=== PATIENT | male | born 1980 | race African-American/Black ===

== ENCOUNTER 2019-09-17 10:27 | Observation (INO) | payer MEDICAID ==
[~2019-09-17] VITALS: Ht 177.8 cm; Wt 77.3 kg
--- NOTE | ~2019-09-17 | EC ---
PATIENT:RON HO DATE OF SERVICE: 09/17/19 SEX: M MEDICAL RECORD: [id number] DATE OF : [birth year] LOCATION:D.M2 D.212 AGE OF PATIENT: 39 ADMISSION DATE: 09/17/19 REFERRING PHYSICIAN: INTERPRETING PHYSICIAN: KEANU PAEZ MD ECHOCARDIOGRAM REPORT ECHO CHARGES 4 ECHO COMPLETE Date: 09/18/19 CLINICAL DIAGNOSIS: CP ECHOCARDIOGRAPHIC MEASUREMENTS (adult normal given) AC root (d.<3.7cm) 2.9 cm LV Septum d (<1.2 cm> 1.4 cm Valve Excursion 2.1 cm LV Septum (systole) 2.1 cm Left Atria (s.<4.0cm> 3.6 cm LVPW d(<1.2cm) 1.5 cm RV (d.<2.3cm) 3.2 cm LVPW (sytole) 2.1 cm LV diastole(<5.6CM) 4.4 cm MV E-F(>70mm/sec) cm LV systole 2.2 cm LVOT Diameter 1.9 cm MV exc.(>10mm) cm Est.ejection fraction (50-75%) % DOPPLER: LVIT cm/sec A 49.0 cm/sec E 63.0 cm/sec LA cm/sec RVSP 34.2 mmHg LVOT 88.0 cm/sec AOP1/2T m/s Asc. Ao 143 cm/sec RVOT 65.0 cm/sec RA cm/sec PA 95.0 cm/sec AV Gradient Peak 8.2 mmHg AV Mean 4.0 mmHg AV Area 1.7 cm MV Gradient Peak 2.0 mmHg MV Mean 0.85 mmHg MV Area cm COMMENTS: Fundraising Assistant: 1 ALMA BASHIROE Heavy Mobile Equipment Repairer: 1 Dr. Paez TAPE# PACS Pericardial Effusion N DATE OF SERVICE: 09/18/2019 FINDINGS: 1. Left ventricular chamber size is within normal limits. Left ventricular systolic function is normal. Overall ejection fraction estimated at 55% to 60%. 2. Left atrium is within normal limits at 3.6 cm. Right atrium and right ventricular chamber sizes are mildly dilated. 3. Valvular structure have normal structure and motion. 4. Doppler interrogation reveals trivial mitral regurgitation, trivial tricuspid regurgitation, no other valvular insufficiency or stenosis. Pulmonary ECHOCARDIOGRAM REPORT [id number] RON HO systolic pressure estimated at 34 mmHg. 5. No evidence of pericardial effusion or left ventricular thrombus. TRANSINT:[id number] Voice Confirmation ID: [id number] DOCUMENT ID: [id number] KEANU PAEZ MD CC: [id number] DICTATION DATE: 09/19/19 1337 WIRE WINDER: 09/19/192304 DIS IN 09/18/19 [place] [id number] [place] [id number]
--- NOTE | ~2019-09-17 | HEMODYNAMI ---
PATIENT:RON HOWELL MEDICAL RECORD: [id number] : 82 LOCATION:[place] [address] ADMISSION DATE: 09/17/19 Generatedon:09/18/201912:38 Patient name: RON HOWELL Patient #: [id number] SSN: : 1980 Date of study: 09/18/2019 Page: Of Hemodynamic Procedure Report Patient Data Patient Demographics Procedure consent was obtained First Name: RON Gender: Male Last Name: VIC : 1980 Patient #: [id number] Age: 39 year(s) Race: Black Additional ID: [id number] Contact details Address: [address] [place] [address] State: [place] City: [facility] Zip code: [address] Admission Admission Data Admission Date: 09/17/2019 Admission Time: 11:55 Arrival Date: 09/18/2019 Arrival Time: 0:00 Admit Source: Other Room #: D2122 Lab Results Lab Result Date: 09/18/2019 Lab Result Time: 0:00 Biochemistry Name Units Result Min Max BUN mg/dl 13 --(--*-)-- 7 18 Creatinine mg/dl 1.1 --(--*-)-- 0.6 1.3 eGFR ml/min 79.87785 *-(----)-- 90 120 NONAFRICAN CBC Name Units Result Min Max Hemoglobin g/dl 13 -*(----)-- 13.5 17.5 Procedure Procedure Types Cath Procedure Diagnostic Procedure LHC LHC w/Coronaries Procedure Description Procedure Date Procedure Date: 09/18/2019 Procedure Start Time: 12:28 Procedure End Time: 12:34 Procedure Staff Name Function Maurilio Paez MD Performing Physician Yadira Mitchell RT Monitor Eleonora Howell RT Scrub Ruiz Gambino RN Nurse Procedure Data Cath Procedure Fluoroscopy Diagnostic fluoroscopy Total fluoroscopy Time: 0.7 time: 0.7 min min Diagnostic fluoroscopy Total fluoroscopy dose: 149 dose: 149 mGy mGy Contrast Material Contrast Material Type Amount (ml) Isovue 300 43 Entry Location Entry Primary Successful Side Size Upsize Upsize Entry Closure Succes sful Closure Location (Fr) 1 (Fr) 2 (Fr) Remarks Device Remarks Femoral Right 6 Fr Exoseal artery Short Estimated blood loss: 5 ml Diagnostic catheters Device Type Used For End Catheter Placement MULTIPACK Pigtail 5 Fr LV Angiography catheter MULTIPACK JL 4.0 5Fr Left Coronary catheter Angiography MULTIPACK 3DRC 5Fr Right Coronary catheter Angiography Procedure Complications No complications Procedure Medications Medication Administration Route Dosage 0.9% NaCl I.V. 100 ml/hr Oxygen etCO2 Nasal cannula 2 l/min Heparin Flush Bag added to field 2 bags (1000units/500ml NS) Lidocaine 2% 20 Versed I.V. 2 mg Fentanyl I.V. 100 mcg Hemodynamics Rest HGB: 13 (g/dl) Heart Rate: 96 (bpm) Pressure Samples Time Site Value (mmHg) Purpose Heart Use Rate(bpm) 12:29 LV 80/11,17 Snapshot 101 Snapshots Pre Cath Intra NCS Post Cath Vital Signs Time Heart Resp SPO2 etCO2 NIBP (mmHg) Rhythm Pain Sedation Rate (ipm) (%) (mmHg) Status Level (bpm) 12:15:03 101 18 99 44.4 129/94(109) NSR 0 (11) 10(A) , No pain 12:19:09 93 13 97 47.3 131/92(110) NSR 0 (11) 10(A) , No pain 12:23:16 94 12 94 45.9 134/89(119) NSR 0 (11) 10(A) , No pain 12:27:22 101 12 96 45.9 127/90(106) NSR 0 (11) 10(A) , No pain 12:31:32 104 18 94 47.3 125/79(111) NSR 0 (11) 9(A) , No pain Medications Time Medication Route Dose Verified Delivered Reason Notes Eff ectiveness by by 12:15:34 0.9% NaCl I.V. 100 Ruiz Ruiz Per ml/hr Immanuel Gambino physician RN RN 12:15:42 Oxygen etCO2 2 Ruiz Ruiz for low 02 Nasal l/min Immanuel Gambino sats cannula RN RN 12:15:52 Heparin Flush added 2 Ruiz Ruiz used for Bag to bags Lorigan Lorigan procedure (1000units/500ml field RN RN NS) 12:16:01 Lidocaine 2% 20ml Ruiz Ruiz for local vial Lorigan Lorigan anesthetic RN RN 12:27:42 Versed I.V. 2 mg Ruiz Ruiz for Lorigan Lorigan sedation RN RN 12:27:50 Fentanyl I.V. 100 Ruiz Ruiz for mcg Lorigan Lorigan sedation RN matlab developer Log Time Note 12:00:00 Ruiz Gambino RN sent for patient. Start room use. 12:00:24 Diagnostic Cath Status : Urgent 12:00:39 Admit Source: Other 12:00:44 ACC Patient presents with Stable Angina CCS Anginal Class 2--Slight limitation of ordinary activity. 12:00:48 Procedure Status Urgent Heart Cath (IP). 12:01:02 Time tracking: Call back (After hours or weekends) 12:01:08 Plan of Care:Hemodynamics will remain stable., Cardiac rhythm will remain stable., Comfort level will be maintained., Respiratory function will remain adequate., Patient/ family verbilizes understanding of procedure., Procedure tolerated without complication., Recovers from procedure without complications.. 12:01:14 H&P Date Dictated: 09/18/2019 Within 30 days and on chart.. 12:01:15 Pre-procedure instructions explained to patient. 12:01:15 Pre-op teaching completed and patient verbalized understanding. 12:01:28 Arrival Date: 09/18/2019 12:00:00 AM 12:04:45 Patient received from Med II to CCL 1 Alert and oriented. Tansferred to table in Supine position. 12:04:47 Signed procedure consent form obtained from patient. 12:04:48 Warm blankets applied, and adriane hugger turned on for patient comfort. 12:04:48 Correct patient and procedure confirmed by team. 12:04:49 ECG and BP/O2 sat monitors applied to patient. 12:04:54 Risk of Mortality: 0.4 12:04:57 Risk of blood transfusion: 3.9 12:04:59 Risk of DANIEL: 0.9 12:05:04 Right groin area was prepped with chlora-prep and draped in sterile fashion 12:05:05 Alarms reviewed by R. N. 12:05:05 Sharps counted by scrub and verified by R.N. 12:05:12 Lab results completed and on chart. 12:05:15 Stress Test: no; N/A ? 12:13:53 Lab Result : BUN 13 mg/dl 12::53 Lab Result : Creatinine 1.1 mg/dl 12::53 Lab Result : eGFR NONAFRICAN 79.73813 ml/min 12:13:53 Lab Result : Hemoglobin 13 g/dl 12:14:09 Vital chart was started 12:14:10 Baseline sample Acquired. 12:14:15 Rhythm: sinus rhythm 12:14:16 Full Disclosure recording started 12:14:20 Family unavailable. 12:14:21 Patient NPO since Midnight. 12:14:23 Is the patient allergic to Iodine/contrast media? No. 12:14:24 Was the patient premedicated? Yes 12:14:26 Is patient on blood thinner?No 12:14:28 Patient diabetic? No. 12:14:37 Previous problem with sedation/anesthesia? No ? 12:14:38 Snore? Yes 12:14:39 Sleep apnea? No 12:14:40 Deviated septum? No 12:14:46 Opens mouth fully? Yes 12:14:47 Sticks out tongue? Yes 12:14:48 Airway obstruction? No ? 12:14:52 Dentures? No ? 12:14:55 Pre procedure: right dorsailis pedis pulse 2+ Normal; easily identifiable; not easily obliterated 12:15:01 Pre procedure: left dorsailis pedis pulse 2+ Normal; easily identifiable; not easily obliterated 12:15:04 Patient pain scale 0/10 ?. 12:15:09 IV patent on arrival in left forearm with 0.9% NaCl at [facility]. 12:15:34 0.9% NaCl 100 ml/hr I.V. was administered by Ruiz Gambino RN; Per physician; Verbal order read back and verified. 12:15:42 Oxygen 2 l/min etCO2 Nasal cannula was administered by Ruiz Gambino RN; for low 02 sats; Verbal order read back and verified. 12:15:52 Heparin Flush Bag (1000units/500ml NS) 2 bags added to field was administered by Ruiz Gambino RN; used for procedure; Verbal order read back and verified. 12:16:01 Lidocaine 2% 20ml vial was administered by Ruiz Lorigan RN; for local anesthetic; Verbal order read back and verified. 12:22:05 Physician paged 12:25:52 2) 60-89 Mildly reduced kidney function, and other findings (as for stage 1) point to kidney disease. 12:25:57 Maximum allowable contrast dose (3.7 X eGFR X 0.75)219 ml. 12::59 Physician arrived 12::59 --------ALL STOP TIME OUT------ 12:26:00 Final Timeout: patient, procedure, and site verified with staff and physician. All members of the team are in agreement. 12:26:02 Right groin site verified by team. 12:26:05 Fire Safety Assessment: A--An alcohol-based skin anteseptic being used preoperatively., C--Open oxygen or nitrous oxide is being used., D--An ESU, laser, or fiber-optic light is being used. 12:26:08 Physical assessment completed. ASA score P 2 - A patient with mild systemic disease as per Maurilio Paez MD. 12:26:11 Sedation plan: IV Moderate Sedation Medication:Versed, Fentanyl 12:26:14 Use device set Femoral Dx 12:26:16 ACIST Syringe (67659) opened to sterile field. 12:26:16 Bag Decanter (2002S) opened to sterile field. 12:26:16 Medline Cath Pack ([id number]) opened to sterile field. 12:26:17 ACIST Hand Control (93533) opened to sterile field. 12:26:18 ACIST Manifold (06782) opened to sterile field. 12:26:18 DIAGNOSTIC Multipack 5Fr catheter set (NX2913) opened to sterile field. 12:26:18 Tegaderm 4 x 4 (1626W) opened to sterile field. 12:26:20 SHEATH 5FR Jean (XLD181) opened to sterile field. 12:26:20 EMERALD Guide Wire (852-148) opened to sterile field. 12:27:42 Versed 2 mg I.V. was administered by Ruiz Gambino RN; for sedation; Verbal order read back and verified. 12:27:50 Fentanyl 100 mcg I.V. was administered by Ruiz Gambino RN; for sedation; Verbal order read back and verified. 12:27:58 Procedure started. 12:28:05 Local anesthetic to right femoral artery with Lidocaine 2% by Maurilio Paez MD.INITIAL ACCESS ONLY 12::25 A 6 Fr Short sheath was inserted into the Right Femoral artery 12::32 A MULTIPACK Pigtail 5 Fr catheter was advanced over the wire and used for LV Angiography. 12:29:23 LV hemodynamics recorded. 12:29:24 LV gram done using BAKER 12::30 Injector settings: Ml/sec: 3, Volume: 6, 12:29:36 EF : 55 % 12:29:56 Catheter removed. 12:30:02 A MULTIPACK JL 4.0 5Fr catheter was advanced over the wire and used for Left Coronary Angiography. 12:30:16 LCA angiography performed. 12::20 Injector settings: Ml/sec: 3, Volume: 6, 12:30:37 Catheter removed. 12:30:41 A MULTIPACK 3DRC 5Fr catheter was advanced over the wire and used for Right Coronary Angiography. 12:31:19 RCA angiography performed. 12::23 Injector settings: Ml/sec: 3, Volume: 6, 12:31:37 Catheter removed. 12:31:56 Sheath removed intact; hemostasis achieved with Exoseal to the Right Femoral artery. 12:32:02 Procedure ended.(Physican Out) 12:32:45 Fluoroscopy time 00.70 minutes. 12:33:00 Fluoroscopy dose: 149 mGy 12:33:00 Flurop Dose total: 149 12:33:08 Dose Area Product 9092 mGy/cm. 12:33:13 Contrast amount:Isovue 300 43ml. 12:33:15 Maximum allowable dose exceeded? No. 12:33:16 Sharps counted by scrub and verified by R.N. 12:33:18 Insertion/operative site no bleeding no hematoma. 12:33:20 Post-op/insertion site Right Femoral artery dressed using a 4 x 4 and Tegaderm. 12:33:23 Post right femoral artery:stable 12:33:25 Post Procedure Pulses reassessed and unchanged 12:33:27 Post procedure rhythm: unchanged. 12:33:30 Estimated blood loss: 5 ml 12:33:32 Post procedure instruction explained to patient.Patient verbalizes understanding. 12:33:32 Patient needs reinforcement of post procedure teaching. 12:34:26 Procedure and supply charges have been captured, reviewed, submitted and are correct. 12:34:31 Procedure Complication : No complications 12:34:33 Vital chart was stopped 12:34:35 [facility] Findings: mild to moderate CAD (<70%) 12:34:37 Operative report dictated upon procedure completion. 12:34:38 See physician's report for complete and final results. 12:34:43 Report given to [facility]. 12:34:45 Patient transfered to [facility] with Stretcher. 12:34:49 Procedure ended. 12:34:49 Full Disclosure recording stopped 12:34:53 End room use (Document Last) 12:35:47 End room use (Document Last) 12:36:05 End room use (Document Last) Device Usage Item Name Manufacture Quantity Catalog Hospital Part Current Minimal L ot# / Number Charge Number Stock Stock Serial# Code ACIST Acist 1 [id number] [id number] 900769 [id number] 20 Syringe Medical (96531) Systems Inc Bag Microtek 1 725685 01146 879521 5 Decanter Medical Inc. () Medline Medline 1 [id number] 977517 02706 517522 5 Cath Pack ([id number]) ACIST Hand Acist 1 27131 747224 326228 528159 5 Control Medical (85822) Systems Inc ACIST Acist 1 74522 013268 295496 113330 5 Manifold Medical (89114) Systems Inc DIAGNOSTIC Cardinal 1 [id number] 651886 72844 284300 30 Multipack Health 5Fr catheter set (SL4714) Tegaderm 4 3M 1 1626W 049655 490508 237070 5 x 4 (1626W) SHEATH 5FR Terumo 1 QKK370 614625 805380 330167 5 Jean (NOS188) EMERALD Cardinal 1 869-154 015672 338088 956873 5 Guide Wire Health (502-876) MULTIPACK Cardinal 1 143343 5 Pigtail 5 Health Fr catheter MULTIPACK Cardinal 1 823793 5 JL 4.0 5Fr Health catheter MULTIPACK Cardinal 1 315693 5 3DRC 5Fr Health catheter Signature Audit [place] Stage Time Signature Unsigned Intra-Procedure 09/18/2019 Yadira Mitchell 12:35:47 PM RT(R) Intra-Procedure 09/18/2019 Ruiz 12:36:05 PM Lorigan RN Intra-Procedure 09/18/2019 Maurilio Paez 12:38:37 PM [facility] [place] [place] [address]
[2019-09-17] MEDS ORDERED: ZOLOFT50 MG PO (10:34)
[2019-09-17 10:53] LABS: BASOPHILS 0.1 % (0-2); EOSINOPHILS 0.6 % (0-7); HEMATOCRIT 41.2 % (42.0-54.0); HEMOGLOBIN 13.3 g/dL (13.5-17.5); IMMATURE GRANULOCYTES 0.1 % (0-5); LYMPHOCYTES 30.2 % (15-50); MCH 25.7 pg (26.0-34.0); MCHC 32.3 g/dL (31.0-37.0); MCV 79.5 fL (80.0-100.0); MEAN PLATELET VOLUME 9.9 fL (7.4-10.4); MONOCYTES 8.5 % (2-11); NEUTROPHILS 60.5 % (40-80); PLATELET COUNT 288 10x3/uL (130-400); RBC 5.18 10x6/uL (4.20-6.10); RDW 14.1 % (11.5-14.5); WBC 8.9 10x3/uL (4.8-10.8)
[2019-09-17 11:03] LABS: CALC OSMOLALITY 285 mosm/kg (275-300); CALCIUM 10.1 mg/dL (8.5-10.1); CARBON DIOXIDE 34.1 mmol/L (21.0-32.0); CHLORIDE - SERUM 103 mmol/L (98-107); CREATININE - SERUM 1.2 mg/dL (0.6-1.3); GLUCOSE 129 mg/dL (74-106); POTASSIUM - SERUM 3.6 mmol/L (3.5-5.1); SODIUM 143 mmol/L (136-145); UREA NITROGEN 9 mg/dL (7-18); eGFR NON AFRICAN AMERICAN 72 mL/min (90-120)
[2019-09-17 11:05] LABS: APTT 32.2 SECONDS (22.8-39.4); INR 0.95 (0.85-1.17); PROTIME 12.7 SECONDS (11.6-15.0)
[2019-09-17 11:12] VITALS: BP 132/91
[2019-09-17 11:19] LABS: ALBUMIN 3.5 g/dL (3.4-5.0); ALKALINE PHOSPHATASE 121 U/L (30-120); ALT (SGPT) 47 U/L (10-68); BILIRUBIN - TOTAL 0.33 mg/dL (0.2-1.3); CKMB 0.5 U/L (0.0-3.6); CREATINE KINASE 139 UL (21-232); MAGNESIUM - SERUM 1.4 mg/dL (1.8-2.4); PROTEIN - SERUM 7.7 g/dL (6.4-8.2)
[2019-09-17 11:24] LABS: TROPONIN-I < 0.017 ng/mL (0.000-0.060)
[2019-09-17 12:05] VITALS: BP 144/103
[2019-09-17 13:56] VITALS: BP 127/77; BMI 24.4
[2019-09-17 14:27] VITALS: Ht 177.8 cm; Wt 77.3 kg
[2019-09-17 17:04] VITALS: BP 139/80
--- NOTE | 2019-09-17 19:23 | NUR ---
RECEIVED UP IN BED WITH HOB ELEVATED. EYES OPEN AND TV ON. VISITOR AT BEDSIDE. IV TO LET AC SL. TELEMETRY IN PLACE. DENIES ANY NEEDS AT THIS TIME.
[2019-09-17 20:00] VITALS: BP 133/67
[2019-09-17 23:29] LABS: UDS - AMPHET POSITIVE QUAL (NEGATIVE); UDS - BARB NEGATIVE QUAL (NEGATIVE); UDS - BENZO NEGATIVE QUAL (NEGATIVE); UDS - COCAINE NEGATIVE QUAL (NEGATIVE); UDS - OPIATE POSITIVE QUAL (NEGATIVE); UDS - PCP NEGATIVE QUAL (NEGATIVE); UDS - THC POSITIVE QUAL (NEGATIVE)
[2019-09-18] VITALS: BP 126/87
[2019-09-18 04:00] VITALS: BP 125/95
[2019-09-18 05:33] LABS: BASOPHILS 0.1 % (0-2); HEMATOCRIT 39.3 % (42.0-54.0); IMMATURE GRANULOCYTES 0.2 % (0-5); LYMPHOCYTES 31.2 % (15-50); MCH 26.3 pg (26.0-34.0); MCHC 33.1 g/dL (31.0-37.0); MCV 79.6 fL (80.0-100.0); MEAN PLATELET VOLUME 10.1 fL (7.4-10.4); MONOCYTES 9.2 % (2-11); NEUTROPHILS 58.3 % (40-80); PLATELET COUNT 318 10x3/uL (130-400); RBC 4.94 10x6/uL (4.20-6.10); RDW 14.1 % (11.5-14.5)
[2019-09-18 05:35] LABS: WBC 11.6 10x3/uL (4.8-10.8)
[2019-09-18 06:11] LABS: CALCIUM 8.9 mg/dL (8.5-10.1); CARBON DIOXIDE 32.6 mmol/L (21.0-32.0); CHLORIDE - SERUM 101 mmol/L (98-107); CREATININE - SERUM 1.1 mg/dL (0.6-1.3); GLUCOSE 129 mg/dL (74-106); POTASSIUM - SERUM 3.6 mmol/L (3.5-5.1); SODIUM 140 mmol/L (136-145); eGFR NON AFRICAN AMERICAN 79 mL/min (90-120)
[2019-09-18 06:13] LABS: CALC OSMOLALITY 280 mosm/kg (275-300); TROPONIN-I < 0.017 ng/mL (0.000-0.060); UREA NITROGEN 13 mg/dL (7-18)
--- NOTE | 2019-09-18 07:05 | NUR ---
REPORTED DARK BROWN EMESIS THIS AM. NOTIFIED DR. IBRAHIM WITH N.O. FOR PROTONIX 40MG IV AND PEPCID 40MG PO X1 NOW. CONSENTS FOR CATH AND BLOOD TRANSFUSION SIGNED.
[2019-09-18 08:36] VITALS: BP 133/88
--- NOTE | 2019-09-18 12:35 | HP ---
PATIENT: RON HOWELL MEDICAL RECORD: [id number] ACCOUNT: [id number] LOCATION:[address] : [birth year] ADMISSION DATE: 09/17/19 PCP: No PCP HISTORY AND PHYSICAL EXAMINATION ADMITTING DIAGNOSES: 1. Chest pain. 2. Substance abuse, methamphetamine. 3. Abnormal ECG. HISTORY OF PRESENT ILLNESS: Mr. Howell has no history of ischemic heart disease. He has been using methamphetamines. He now presents with chest pain times 4 days. He states that his last methamphetamine use was approximately 2 days ago. His EKG does have T-wave inversions in the inferolateral leads. PHYSICAL EXAMINATION: CONSTITUTIONAL/GENERAL APPEARANCE: Well nourished, well developed, appears stated age. EYES: Lids and conjunctivae noninjected. No discharge. No pallor. ENT: Lips within normal limit. No cyanosis. No pallor. NECK: Carotid arteries, bilateral normal upstroke. No bruits. No thrills. No jugular venous pressure or distention. CERVICAL LYMPH NODES: Nontender. Nonenlarged. THYROID: Not enlarged. No nodules. CARDIOVASCULAR: Precordial exam, nondisplaced. No heaves or pericardial thrills. Rate and rhythm, regular. Heart sounds, normal S1, normal S2. No S3, no gallop, no rub. Systolic murmur, not heard. Diastolic murmur, not heard. RESPIRATORY: Respiratory effort, unlabored. Normal curvature. No thoracic deformity. No chest wall tenderness. Percussion, resonant. Auscultation, clear. No wheezes, no rales, no rhonchi. ABDOMEN: Soft, nondistended, nontender. No abdominal pain, no vomiting and normal appetite. MUSCULOSKELETAL: No joint tenderness, normal gait, normal tone. SKIN: Warm and dry. OVERALL IMPRESSION: Chest pain associated with methamphetamine use. At this time, we will get an echocardiogram. We will not plan for cardiac catheterization, symptomatic relief of the chest pain and obviously cessation from the methamphetamines. TRANSINT:[id number] Voice Confirmation ID: [id number] DOCUMENT ID: [id number] KEANU IBRAHIM MD at 1235 CC: [id number] DICTATION DATE: 09/17/19 1428 JEWEL BEARING TURNER: 09/17/19 1438 ADM IN [address] [place] [address]
[2019-09-18] MEDS ORDERED: PEPCID AC20 MG PO (15:05)
[2019-09-18 17:24] VITALS: BP 109/65
[2019-09-18] MEDS ORDERED: OMEPRAZOLE40 MG PO (18:32)
--- NOTE | 2019-09-19 09:49 | MORECARE ---
CASE MANAGEMENT DISCHARGE SUMMARY PATIENT: RON HO UNIT: [id number] ADM DATE: 09/17/19 AGE: 39 : [birth year] SEX: M ROOM/BED: D.2122 AUTHOR: STACY ESPINOZA PHYSICIAN: REFERRING PHYSICIAN: KEANU IBRAHIM MD DATE OF SERVICE: 09/19/19 Discharge Plan Patient Name: RON HO [facility] : 1980 Planned Disposition: Home Anticipated Discharge Date: 09/18/19 Discharge Date: 09/18/2019 Expected LOS: 1 Initial Reviewer: [email or web address] Initial Review Date: 09/19/2019 Generated: 09/19/19 10:49 am Patient Name: RON HO Page [id number] at 0949 All edits/amendments must be made on the electronic document DICTATION DATE: 09/19/1949 MASONRY TEACHER: STACIA 09/19/19 0949 RPT#: [id number] DC DATE:09/18/19 STATUS: DIS IN [facility] [address] [place] [address] END OF REPORT
--- NOTE | 2019-09-19 11:54 | DS ---
PATIENT:RON HOWELL :82 MEDICAL RECORD: [id number] DISCHARGE SUMMARY ADMISSION DATE: 09/17/19 DISCHARGE DATE: 09/18/19 DISCHARGE DIAGNOSES: 1. Gastroesophageal reflux disease. 2. Meth use. 3. Smoking. 4. Chest pain. HOSPITAL COURSE: Mr. Howell presents with chest pain. He continues to have chest pain; however, cardiac catheterization was normal. This is secondary to meth use and GERD. He was discharged home to use npdb-hlc-lantley Pepcid and omeprazole. No cardiac followup is necessary. TRANSINT:[id number] Voice Confirmation ID: [id number] DOCUMENT ID: [id number] KEANU IBRAHIM MD at 1154 CC: [id number] DICTATION DATE: 09/18/19 1234 CLERK RATING: 09/18/192103 DIS IN 09/18/19 [place] [address] [place] [address]
--- NOTE | 2019-09-19 11:54 | OP ---
PATIENT NAME: RON HO MEDICAL RECORD: [id number] :82 LOCATION:D.M2 D.2 ADMISSION DATE:09/17/19 SURGEON: KEANU IBRAHIM MD DATE OF OPERATION: 09/18/2019 PROCEDURES: 1. Left heart catheterization. 2. Selective coronary angiography. 3. Left ventriculogram. INDICATION: Chest pain. PROCEDURE IN DETAIL: After informed consent was obtained and after a detailed description of risks, benefits as well as alternative therapies, the patient elected to proceed with angiogram and heart catheterization. The right femoral area was prepped and draped in normal sterile fashion. Right femoral artery was cannulated via modified Seldinger technique with placement of 6-Turkmen sheath. All catheters exchanged through this sheath. FINDINGS: Left ventriculogram was performed in standard 30-degree BAKER view, reveals good cardiac wall motion, ejection fraction estimated at 60%. SELECTIVE CORONARY ANGIOGRAPHY: Left main, left anterior descending, left circumflex, right coronary artery are all smooth-walled vessels with no angiographic evidence of coronary artery disease. OVERALL IMPRESSION: 1. No angiographic evidence of coronary artery disease. 2. Normal left heart pressures. 3. Normal left ventricular systolic function. Chest pain is noncardiac in etiology. TRANSINT:[id number] Voice Confirmation ID: [id number] DOCUMENT ID: [id number] KEANU IBRAHIM MD at 1154 CC: [id number] DICTATION DATE: 09/18/19 1235 TESTER ROCKET ENGINE: 09/18/19 2309 DIS IN 09/18/[address] [address]
== END 2019-09-18 18:46 | disposition home or self-care (01) ==
LOC: D.ER 10:27 → D.M2 11:55 → OBSVTIME 09-18 18:45 → D.M2 09-18 18:46
PROVIDERS: Family Medicine; ADMIT Internal Medicine Interventional Cardiology; ATTEND Internal Medicine Interventional Cardiology
DX: R07.9 Chest pain, unspecified (principal); F15.10 Other stimulant abuse, uncomplicated; R94.31 Abnormal electrocardiogram [ECG] [EKG]; K21.9 Gastro-esophageal reflux disease without esophagitis